=== PATIENT | male | born 1995 ===

== ENCOUNTER 2023-04-05 07:24 | Emergency (ER) | payer OTHER ==
[~2023-04-05] VITALS: Ht 180.3 cm; Wt 108.0 kg
[~2023-04-05 07:24] MED LIST: CELEBREX100 MG PO; ORPH100T PO
== END 2023-04-05 13:48 | disposition home or self-care (01) ==
LOC: ER 07:24
DX: K52.89 Other specified noninfective gastroenteritis and colitis (principal); Z91.013 Allergy to seafood